=== PATIENT | female | born 1950 | race American Indian/Alaskan Native ===

== ENCOUNTER 2018-04-01 15:26 | Emergency (ER) | payer MEDICARE, OTHER ==
[2018-04-01 16:40] LABS: Basophils # (Auto) 0.1 K/mm3 (0.0-0.1); Basophils % (Auto) 1.1 % (0.0-1.8); Eosinophils # (Auto) 0.1 K/mm3 (0.0-0.4); Hematocrit 40.5 % (30.3-42.9); Hemoglobin 13.4 gm/dl (10.1-14.3); Lymphocytes # (Auto) 2.1 K/mm3 (1.2-5.4); Lymphocytes % (Auto) 25.8 % (13.4-35.0); Mean Corpuscular HGB Conc 33 % (30-34); Mean Corpuscular Hemoglobin 27 pg (28-32); Mean Corpuscular Volume 81 fl (79-97); Monocytes # (Auto) 0.6 K/mm3 (0.0-0.8); Monocytes % (Auto) 6.9 % (0.0-7.3); Platelet Count 350 K/mm3 (140-440); Red Blood Count 4.99 M/mm3 (3.65-5.03); Red Cell Distribution Width 16.6 % (13.2-15.2)
[2018-04-01 17:05] LABS: Alanine Aminotransferase 14 units/L (7-56); Albumin 4.2 g/dL (3.9-5); BUN/Creatinine Ratio 22; Blood Urea Nitrogen 11 mg/dL (7-17); Calcium 10.1 mg/dL (8.4-10.2); Hemolysis Index 4; Lipase 39 units/L (13-60)
[2018-04-01 17:58] LABS: Bilirubin,Urine NEG (Negative); Blood,Urine SM (Negative); Color,Urine Yellow (Yellow); Mucus,Urine FEW /HPF
[2018-04-01] MEDS ORDERED: ZOFRAN ODT ONE (18:48)
[2018-04-01] MEDS ORDERED: ZOFRAN ODT PO ONE (19:11)
[2018-04-01] MEDS ORDERED: NACL 0.9% 1000 ML 1,000 ML ONE (19:31)
[2018-04-01] MEDS ORDERED: REGLAN ONE (19:32)
[2018-04-01] MEDS ORDERED: NACL 0.9% 1000 ML 1,000 ML IV ONE (19:42)
[2018-04-01] MEDS ORDERED: REGLAN IV ONE (19:42)
[2018-04-01] MEDS ORDERED: ZOFRAN ONE (22:26)
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
[2018-04-01] MEDS ORDERED: ZOFRAN IM ONE (22:53)
[2018-04-02 00:21] LABS: Bilirubin,Urine NEG (Negative); Blood,Urine NEG (Negative); Color,Urine Yellow (Yellow); Mucus,Urine FEW /HPF; Urobilinogen,Urine < 2.0 mg/dL (<2.0)
[2018-04-02] MEDS ORDERED: NACL 0.9% 1000 ML 1,000 ML IV ONE ×2 (00:29→03:25)
[2018-04-02] MEDS ORDERED: MORPHINE IV ONE ×2 (00:29→03:26)
[2018-04-02] MEDS ORDERED: COMPAZINE IV ONE (00:29)
--- NOTE | 2018-04-02 01:53 | Cat Scan Report ---
FINAL REPORT PROCEDURE: CT ABDOMEN PELVIS WO CON TECHNIQUE: Computerized axial tomography of the abdomen and pelvis was performed without intravenous contrast. This study is performed without intravascular contrast material and its sensitivity for abdominal and pelvic pathology, including neoplasms, inflammation, abscess, free fluid, thrombosis, arterial dissection and infarction, is reduced compared with a contrast enhanced study. HISTORY: LLQ abd pain, stone eval COMPARISON: No prior studies are available for comparison. FINDINGS: Visualized lower thorax: No significant abnormality. Liver: Normal size and attenuation. Spleen: Normal size and attenuation. Gallbladder and biliary system: Normal. Pancreas: Normal. Adrenals: Normal. Kidneys: There is a 2 millimeter stone in the midpole the left kidney. There is no ureteral stone. There is no hydronephrosis.. GI tract: There is no bowel obstruction, colitis or enteritis. There are diverticula of the sigmoid and left colon.. Lymph nodes and mesentery: Normal. Vasculature: Normal. Bladder: Normal. Reproductive organs: There has been a hysterectomy. Peritoneum: There is no ascites or free air, abscess or adenopathy.. Musculoskeletal structures: No significant abnormality. Other: None. IMPRESSION: There is a 2 millimeter stone in the midpole the left kidney. There is no ureteral stone. There is no hydronephrosis.. There is no bowel obstruction, colitis or enteritis. There are diverticula of the sigmoid and left colon.. There has been a hysterectomy. There is no ascites or free air, abscess or adenopathy.. .
[2018-04-02 06:17] VITALS: BP 138/76
== END 2018-04-02 06:32 | disposition home or self-care (01) ==
LOC: ED 15:26
DX: K52.89 Other specified noninfective gastroenteritis and colitis (principal); E86.0 Dehydration; E11.9 Type 2 diabetes mellitus without complications; I10 Essential (primary) hypertension; Z79.4 Long term (current) use of insulin; F32.9 Major depressive disorder, single episode, unspecified
CPT/HCPCS: 36415; 74176; 80053; 81001; 82140; 83690; 85025; 87040; 96361; 96374; 96375; 96376; 99284; J0780; J2270; J2405; J2765; J7030; Q0162